=== PATIENT | female | born 1960 | race Caucasian/White ===

== ENCOUNTER 2016-10-09 19:28 | Emergency (ER) | payer OTHER ==
--- NOTE | 2016-10-09 21:03 | ED CLINICAL REPORT ---
Clinical Report - Physicians/Mid Levels [facility] [address] [place] [address] 10/09/2016 19:32 [id number] Time Seen: 21:Oct 09 2016. Arrived- By private vehicle. Historian- patient. HISTORY OF PRESENT ILLNESS Chief Complaint: Injury to the right elbow. The injury happened just prior to arrival. Occurred at home. The patient sustained a laceration. Patient is experiencing mild pain. Patient denies injury to the head or neck. ( Patient sustained a laceration to the right elbow from glasses she was leaning against a bookshelf. Denies any major direct fall or trauma. Patient is left-hand dominant. No prior injuries to the right elbow.). REVIEW OF SYSTEMS The patient sustained a laceration. No swelling or tingling. All systems otherwise negative, except as recorded above. PAST HISTORY The patient's dominant hand is the right. She has not had a prior injury to the same area. Tetanus immunization status is up-to-date. SOCIAL HISTORY Never smoker. No alcohol use or drug use. ADDITIONAL NOTES The nursing notes have been reviewed. PHYSICAL EXAM Vital Signs: 10/09/2016 19:36 BP: 120/76. HR: 66. RR: 18. O2 saturation: 100%. Temp: 98 F. Pain level now: 2/10. Appearance: Alert. No acute distress. Head: Head atraumatic. CVS: Normal heart rate and rhythm. Heart sounds normal. Respiratory: No respiratory distress. Breath sounds normal. Skin: Skin warm. Normal skin color. Extremities: Right elbow: subcutaneous 2.5 cm laceration. SEE LACERATION PROCEDURE NOTE #1. No erythema or tenderness. Right forearm. Neuro, Vascular and Tendons: Vascular status intact. Motor intact. Neuro: Oriented X 3. PROGRESS AND PROCEDURES Laceration Repair: Time: 2044Oct 09 2016. Time-out completed immediately before the procedure. Length: 3 cm. Complexity: simple (local anesthesia used and sutured). Wound depth/shape- linear and involving fascia. Wound is clean. Distal neuro/vascular/tendon status normal. Tendon examined. No sensory deficit or motor deficit distally. Local anesthesia provided using 1% lidocaine with epi. Prepped with Betadine. Wound explored, cleansed and irrigated. Closure of superficial layer: interrupted 5-0 (9 sutures, non absorb). Course of Care: patient with a partial-thickness laceration minimally gaping, offered Dermabond, however lately overlying the joint, patient wishes to have seizures which are finally reasonable. Good distal sensation and neurovascular. No signs of foreign object. No osseous tenderness. Laceration repaired. Patient stable for discharge. Patient is stable. Physical exam findings are improved. Symptoms better. Patient/family counseled. Disposition: Discharged. CLINICAL IMPRESSION Single superficial laceration to the right elbow.Treatment of laceration not delayed. No infection or foreign body present. INSTRUCTIONS Protect wound and keep wound area clean. Apply bacitracin twice daily. Sutures/bryce should be removed in eight days. OTC Medications: Take OTC medications according to label instructions. Available over the counter. Acetaminophen (available over the counter): take according to label instructions. Motrin (available over the counter): take according to label instructions. Follow-up: Follow up with your doctor in eight days. (Electronically signed by Yoly Lee P.A.-C 10/09/2016 21:09)
--- NOTE | 2016-10-09 21:03 | ED NURSING NOTES ---
Clinical Report - Nurses [facility] [address] [place] [address] 10/09/2016 19:32 Patient: TARAS BLANTON TRIAGE Triage time 0734. Acuity: LEVEL 4. Chief Complaint: INJURY TO RIGHT ELBOW. 19:41 10/09/16. Alert. No acute distress. SEPSIS SCREEN: Sepsis Screen. Negative (no infection suspected/documented). ZURI COMA SCORE: Zuri Coma Scale: 15- eyes open spontaneously (4); best verbal response- oriented x 4 (5); best motor response- obeys commands (6). --19:41 Nancy Guadalupe R.N. 19:36 10/09/16. BP: 120/76. HR: 66. RR: 18. O2 saturation: 100%. Temp: 98 F. Pain level now: 06/23. --19:41 Nancy Guadalupe R.N. Weight: 79.3 kg stated. Height/Length: 63.5 inches Per Patient. BMI: 30.5. --19:39 Nancy Guadalupe R.N. Medications None. --19:38 Nancy Guadalupe R.N. Allergies Codeine. --19:38 Nancy Guadalupe R.N. History Arrived by private vehicle. Historian: patient. Accompanied by family. Primary physician (Dr Álvarez). This occurred just prior to arrival. She sustained a laceration (glass from a frame). ( Patient states she was moving a chair when she cut her elbow on glass that was sitting on her bookcase.). 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 PAST MEDICAL HX: Tetanus status: up-to-date. Immunizations: up-to-date. Denies current . SOCIAL HX: Never smoker. Occasional alcohol use. No drug use. FALL RISK ASSESSMENT: Fall risk assessment completed. No fall risk identified. NUTRITIONAL RISK ASSESSMENT: The nutritional risk assessment revealed no deficiencies. FUNCTIONAL ASSESSMENT: Functional assessment: no impairments noted. LEARNING NEEDS ASSESSMENT: The learning needs assessment revealed no barriers. SKIN INTEGRITY ASSESSMENT: Skin integrity risk assessment completed. No skin integrity risk identified. --19:41 Nancy Guadalupe R.N. PROBLEMS: no known problems. ADDITIONAL SURGERIES: Kidney removal. --19:38 Nancy Guadalupe R.N. Interventions ID band on patient. To treatment room. --19:41 Nancy Guadalupe R.N. PHYSICAL ASSESSMENT 19:41 10/09/16. Ambulatory to room. GENERAL / NEURO / PSYCH: Oriented X 4. Alert. Appears in no acute distress. EXTREMITIES: Capillary refill is less than 2 seconds in the extremities. Extremity pulses are within normal limits. Extremities exhibit normal ROM. Right elbow: 3.0 cm laceration with controlled bleeding of the area of the posterior elbow. SKIN: Skin intact. Skin is warm and dry. --19:41 Nancy Guadalupe R.N. NURSING PROGRESS NOTES 19:42 10/09/16. Two patient identifiers checked. Call light placed in reach. Bed placed in lowest position. Brakes of bed on. Patient ready for evaluation- chart flagged and notification provided. --19:43 Nancy Guadalupe R.N. Wound cleansed with sterile saline (2019). --20:36 Rissa Edwards. DISPOSITION / DISCHARGE 20:48 10/09/16. --20:48 Nancy Guadalupe R.N. 20:47 10/09/16. BP: 136/77. HR: 70. RR: 15. O2 saturation: 96%. Temp: deferred. Pain level now: 2/10. --20:48 Nancy Guadalupe R.N. 21:05 10/09/16. Condition at departure: improved. No learning barriers present. Discharge instructions provided and reviewed with the patient. Reviewed medication(s). Treatments reviewed. Activity restrictions reviewed. Patient and acoustic sensor operator verbalized understanding. Written instructions provided in Faroese. The patient was discharged home and accompanied by acoustic sensor operator. She left the Emergency Department ambulatory and via private vehicle. Linen Folder driving. --21:05 Nancy Guadalupe R.N. Locked/Released at 10/09/2016 21:08 by Nancy Guadalupe R.N.
--- NOTE | 2016-10-09 21:03 | ED NURSING NOTES ---
Clinical Report - Nurses [facility] [address] [place] [address] 10/09/2016 19:32 Patient: TARAS BLANTON TRIAGE Triage time 0734. Acuity: LEVEL 4. Chief Complaint: INJURY TO RIGHT ELBOW. 19:41 10/09/16. Alert. No acute distress. SEPSIS SCREEN: Sepsis Screen. Negative (no infection suspected/documented). ZURI COMA SCORE: Zuri Coma Scale: 15- eyes open spontaneously (4); best verbal response- oriented x 4 (5); best motor response- obeys commands (6). --19:41 Nancy Guadalupe R.N. 19:36 10/09/16. BP: 120/76. HR: 66. RR: 18. O2 saturation: 100%. Temp: 98 F. Pain level now: 06/23. --19:41 Nancy Guadalupe R.N. Weight: 79.3 kg stated. Height/Length: 63.5 inches Per Patient. BMI: 30.5. --19:39 Nancy Guadalupe R.N. Medications None. --19:38 Nancy Guadalupe R.N. Allergies Codeine. --19:38 Nancy Guadalupe R.N. History Arrived by private vehicle. Historian: patient. Accompanied by family. Primary physician (Dr Álvarez). This occurred just prior to arrival. She sustained a laceration (glass from a frame). ( Patient states she was moving a chair when she cut her elbow on glass that was sitting on her bookcase.). 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 PAST MEDICAL HX: Tetanus status: up-to-date. Immunizations: up-to-date. Denies current . SOCIAL HX: Never smoker. Occasional alcohol use. No drug use. FALL RISK ASSESSMENT: Fall risk assessment completed. No fall risk identified. NUTRITIONAL RISK ASSESSMENT: The nutritional risk assessment revealed no deficiencies. FUNCTIONAL ASSESSMENT: Functional assessment: no impairments noted. LEARNING NEEDS ASSESSMENT: The learning needs assessment revealed no barriers. SKIN INTEGRITY ASSESSMENT: Skin integrity risk assessment completed. No skin integrity risk identified. --19:41 Nancy Guadalupe R.N. PROBLEMS: no known problems. ADDITIONAL SURGERIES: Kidney removal. --19:38 Nancy Guadalupe R.N. Interventions ID band on patient. To treatment room. --19:41 Nancy Guadalupe R.N. PHYSICAL ASSESSMENT 19:41 10/09/16. Ambulatory to room. GENERAL / NEURO / PSYCH: Oriented X 4. Alert. Appears in no acute distress. EXTREMITIES: Capillary refill is less than 2 seconds in the extremities. Extremity pulses are within normal limits. Extremities exhibit normal ROM. Right elbow: 3.0 cm laceration with controlled bleeding of the area of the posterior elbow. SKIN: Skin intact. Skin is warm and dry. --19:41 Nancy Guadalupe R.N. NURSING PROGRESS NOTES 19:42 10/09/16. Two patient identifiers checked. Call light placed in reach. Bed placed in lowest position. Brakes of bed on. Patient ready for evaluation- chart flagged and notification provided. --19:43 Nancy Guadalupe R.N. Wound cleansed with sterile saline (2019). --20:36 Rissa Edwards. DISPOSITION / DISCHARGE 20:48 10/09/16. --20:48 Nancy Guadalupe R.N. 20:47 10/09/16. BP: 136/77. HR: 70. RR: 15. O2 saturation: 96%. Temp: deferred. Pain level now: 2/10. --20:48 Nancy Guadalupe R.N. 21:05 10/09/16. Condition at departure: improved. No learning barriers present. Discharge instructions provided and reviewed with the patient. Reviewed medication(s). Treatments reviewed. Activity restrictions reviewed. Patient and commissary clerk verbalized understanding. Written instructions provided in Ecuadorean. The patient was discharged home and accompanied by commissary clerk. She left the Emergency Department ambulatory and via private vehicle. Veneer Clipper driving. --21:05 Nancy Guadalupe R.N. Locked/Released at 10/09/2016 21:08 by Nancy Guadalupe R.N.
--- NOTE | 2016-10-09 21:03 | ED CLINICAL REPORT ---
Clinical Report - Physicians/Mid Levels [facility] [address] [place] [place] [address] 10/09/2016 19:32 [id number] Time Seen: 21:Oct 09 2016. Arrived- By private vehicle. Historian- patient. HISTORY OF PRESENT ILLNESS Chief Complaint: Injury to the right elbow. The injury happened just prior to arrival. Occurred at home. The patient sustained a laceration. Patient is experiencing mild pain. Patient denies injury to the head or neck. ( Patient sustained a laceration to the right elbow from glasses she was leaning against a bookshelf. Denies any major direct fall or trauma. Patient is left-hand dominant. No prior injuries to the right elbow.). REVIEW OF SYSTEMS The patient sustained a laceration. No swelling or tingling. All systems otherwise negative, except as recorded above. PAST HISTORY The patient's dominant hand is the right. She has not had a prior injury to the same area. Tetanus immunization status is up-to-date. SOCIAL HISTORY Never smoker. No alcohol use or drug use. ADDITIONAL NOTES The nursing notes have been reviewed. PHYSICAL EXAM Vital Signs: 10/09/2016 19:36 BP: 120/76. HR: 66. RR: 18. O2 saturation: 100%. Temp: 98 F. Pain level now: 2/10. Appearance: Alert. No acute distress. Head: Head atraumatic. CVS: Normal heart rate and rhythm. Heart sounds normal. Respiratory: No respiratory distress. Breath sounds normal. Skin: Skin warm. Normal skin color. Extremities: Right elbow: subcutaneous 2.5 cm laceration. SEE LACERATION PROCEDURE NOTE #1. No erythema or tenderness. Right forearm. Neuro, Vascular and Tendons: Vascular status intact. Motor intact. Neuro: Oriented X 3. PROGRESS AND PROCEDURES Laceration Repair: Time: 2044Oct 09 2016. Time-out completed immediately before the procedure. Length: 3 cm. Complexity: simple (local anesthesia used and sutured). Wound depth/shape- linear and involving fascia. Wound is clean. Distal neuro/vascular/tendon status normal. Tendon examined. No sensory deficit or motor deficit distally. Local anesthesia provided using 1% lidocaine with epi. Prepped with Betadine. Wound explored, cleansed and irrigated. Closure of superficial layer: interrupted 5-0 (9 sutures, non absorb). Course of Care: patient with a partial-thickness laceration minimally gaping, offered Dermabond, however lately overlying the joint, patient wishes to have seizures which are finally reasonable. Good distal sensation and neurovascular. No signs of foreign object. No osseous tenderness. Laceration repaired. Patient stable for discharge. Patient is stable. Physical exam findings are improved. Symptoms better. Patient/family counseled. Disposition: Discharged. CLINICAL IMPRESSION Single superficial laceration to the right elbow.Treatment of laceration not delayed. No infection or foreign body present. INSTRUCTIONS Protect wound and keep wound area clean. Apply bacitracin twice daily. Sutures/bryce should be removed in eight days. OTC Medications: Take OTC medications according to label instructions. Available over the counter. Acetaminophen (available over the counter): take according to label instructions. Motrin (available over the counter): take according to label instructions. Follow-up: Follow up with your doctor in eight days. (Electronically signed by Yoly Lee P.A.-C 10/09/2016 21:09)
--- NOTE | 2016-10-09 21:09 | ED MED RECONCILIATION SUMMARY ---
Patient: TARAS BLANTON Medication Reconciliation Report [facility] VisitID: [id number] [address] [place] [address] 56y, F Registration Date/Time: 10/09/2016 Weight: 79.3 kg Height/Length: 60 in. BMI: 30.5 ALLERGIES: Codeine The patient's Home Medications are listed below: NONE. The source(s) of the original Home Medication information: Not obtained. The following Medications were given to the patient in the Emergency Department: None. The following Medications were prescribed to the patient: Take OTC medications according to label instructions. Available over the counter. -- Yoly Lee, P.A.-C Acetaminophen (available over the counter): take according to label instructions. -- Yoly Lee, P.A.-C Motrin (available over the counter): take according to label instructions. -- Yoly Lee, P.A.-C
--- NOTE | 2016-10-09 21:09 | ED MAR SUMMARY ---
..... Medication Administration Record [facility] [address] [place], [place] [id number] Patient: TARAS BLANTON Visit ID: [id number] 56y, F Weight: 79.3 kg Height/Length: 63.5 in BMI: 30.5 ALLERGIES: Codeine
--- NOTE | 2016-10-09 21:09 | ED MAR SUMMARY ---
..... Medication Administration Record [facility] [address] [place], [place] [id number] Patient: TARAS BLANTON Visit ID: [id number] 56y, F Weight: 79.3 kg Height/Length: 63.5 in BMI: 30.5 ALLERGIES: Codeine
--- NOTE | 2016-10-09 21:09 | ED DISCHARGE INSTRUCTIONS ---
Patient: TARAS BLANTON General Instructions [facility] VisitID: [id number] [place] [address] 56y, F Registration Date/Time: 10/09/2016 Single superficial laceration to the right elbow.Treatment of laceration not delayed. No infection or foreign body present. INSTRUCTIONS Protect wound and keep wound area clean. Apply bacitracin twice daily. Sutures/bryce should be removed in eight days. OTC Medications: Take OTC medications according to label instructions. Available over the counter. Acetaminophen (available over the counter): take according to label instructions. Motrin (available over the counter): take according to label instructions. Follow-up: Follow up with your doctor in eight days. ADDITIONAL INFORMATION Laceration, Extremity (Sutures, [place], Or Tape) A laceration is a cut through the skin. This will usually require stitches (sutures) or bryce if it is deep. Minor cuts may be treated with surgical tape closures. Home care The following guidelines will help you care for your laceration at home: Keep the wound clean and dry. If a bandage was applied and it becomes wet or dirty, replace it. Otherwise, leave it in place for the first 24 hours, then change it once a day or as directed. If stitches or bryce were used, clean the wound daily: After removing the bandage, wash the area with soap and water. Use a wet cotton swab to loosen and remove any blood or crust that forms. After cleaning, keep the wound clean and dry. Talk with your doctor before applying any antibiotic ointment to the wound. Reapply the bandage. You may remove the bandage to shower as usual after the first 24 hours, but do not soak the area in water (no swimming) until the stitches or bryce are removed. If surgical tape closures were used, keep the area clean and dry. If it becomes wet, blot it dry with a towel. The doctor may prescribe an antibiotic cream or ointment to prevent infection. Do not stop taking this medication until you have finished the prescribed course or the doctor tells you to stop. The doctor may also prescribe medications for pain. Follow the doctors instructions for taking these medications. If you have chronic liver or kidney disease or ever had a stomach ulcer or GI bleeding, talk with your doctor before using these medicines. Follow-up care Follow up with your health care provider. Most skin wounds heal within ten days. However, an infection may sometimes occur despite proper treatment. Therefore, check the wound daily for the signs of infection listed below. Stitches and bryce should be removed within 714 days. If surgical tape closures were used, you may remove them after 10 days, if they have not fallen off by then. Notify your doctor if you notice persistent numbness or weakness in the injured extremity. (Note:A radiologist will review any X-rays that were taken. We will notify you of any new findings that may affect your care.) When to seek medical care Get prompt medical attention if any of these occur: Increasing pain in the wound Redness, swelling, or pus coming from the wound Fever of 100.4F (38C) or higher, or as directed by your health care provider If stitches or bryce come apart or fall out before your next appointment If the surgical tape closures fall off within seven days, or the wound edges re-open Bleeding not controlled by direct pressure You have been given the following additional information: Laceration, Extrem (Suture, Staple, Or Tape) (Electronically signed by Yoly Lee P.A.-C 10/09/2016 21:09)
--- NOTE | 2016-10-09 21:09 | ED MED RECONCILIATION SUMMARY ---
Patient: TARAS BLANTON Medication Reconciliation Report [facility] VisitID: [id number] [address] [place] [address] 56y, F Registration Date/Time: 10/09/2016 Weight: 79.3 kg Height/Length: 60 in. BMI: 30.5 ALLERGIES: Codeine The patient's Home Medications are listed below: NONE. The source(s) of the original Home Medication information: Not obtained. The following Medications were given to the patient in the Emergency Department: None. The following Medications were prescribed to the patient: Take OTC medications according to label instructions. Available over the counter. -- Yoly Lee, P.A.-C Acetaminophen (available over the counter): take according to label instructions. -- Yoly Lee, P.A.-C Motrin (available over the counter): take according to label instructions. -- Yoly Lee, P.A.-C
== END 2016-10-09 21:05 | disposition home or self-care (01) ==
LOC: ED SRH 19:28
DX: S51.011A Laceration without foreign body of right elbow, initial encounter (principal); W25.XXXA Contact with sharp glass, initial encounter; Y92.019 Unspecified place in single-family (private) house as the place of occurrence of the external cause; Z88.5 Allergy status to narcotic agent